=== PATIENT | male | born 1960 | race Caucasian/White ===

== ENCOUNTER 2017-10-04 22:53 | Emergency (ER) | payer SELFPAY ==
[2017-10-04] MEDS ORDERED: Bacitracin Zinc 1 Packet ONE (23:20)
[2017-10-04] MEDS ORDERED: Lidocaine 1% w/Epinephrine 1:100K 30 ML VIAL ONE (23:21)
== END 2017-10-04 23:30 | disposition home or self-care (01) ==
LOC: NAV ERS 22:53
DX: S01.01XA Laceration without foreign body of scalp, initial encounter (principal); F17.210 Nicotine dependence, cigarettes, uncomplicated; W13.8XXA Fall from, out of or through other building or structure, initial encounter
CPT/HCPCS: 12001; J2001